=== PATIENT | female | born 1985 | race Caucasian/White ===

== ENCOUNTER → 2016-08-19 | Outpatient (CLI) | payer OTHER ==
--- NOTE | ~2016-08-19 | US116 ---
[facility] A Service of [facility] / [facility] RADIOLOGY TEXT RESULTS PATIENT: SHANTELL AVENDANO LOCATION: [facility] : 85 UNIT #: [id number] AGE: [address]: Zach Das MD SEX: F ORDER DR: [id number] [address] [facility]. [place], [place] [address] [id number] O MR#: [id number] Acc #: [id number] NAME: SHANTELL AVENDANO : 1985 SEX: F STUDY DATE/TIME: 08/19/2016 15:04 UNIT: [facility] ROOM: STUDY DESCRIPTION: US Soft Tissue Head/Neck Attending Physician: Zach Das M.D. Referring Physician: Zach Das M.D. Ordering Physician: Zach Das M.D. Primary Care Physician: Ben TorrezPMomoRMateo MEDICAL IMAGING REPORT This report is preliminary unless electronic signature is present EXAM Ultrasound of the neck. INDICATIONS Lymphadenopathy. Restaging. COMPARISON Neck ultrasound dated 05/24/2016. FINDINGS A small hyperechoic focus superior to the left clavicle measures 0.7 cm. This previously measured 0.9 cm. This is indeterminate, however, the stability is reassuring. This may represent a small lipoma. There are a few small lymph nodes in the cervical region, however, these are not considered to be pathologically enlarged. They are subcentimeter in short axis diameter. IMPRESSION 1. No new findings. 2. Small hyperechoic area above the left clavicle is unchanged from prior study. This is indeterminate, however, probably represents a lipoma. No pathologically enlarged lymph nodes. Dictated by... Juan Wright M.D. THIS IS AN ELECTRONICALLY VERIFIED REPORT Juan Wright M.D. at 08/21/2016 3:56 PM KEYLA/amrita TD: 08/21/2016 15:31 [facility] A Service [facility] RADIOLOGY TEXT RESULTS PATIENT: SHANTELL AVENDANO LOCATION: [facility] #: [id number] : 85 UNIT #: [id number] AGE: [address]: Zach Das MD SEX: F ORDER DR: HIMANSHU #: [id number] MEDICAL IMAGING REPORT Page 1 of 1 COPY
== END | disposition home or self-care (01) ==
LOC: CGUS 14:47
DX: R59.0 Localized enlarged lymph nodes (principal)
CPT/HCPCS: 76536